=== PATIENT | female | born 1965 | race Caucasian/White ===

== ENCOUNTER → 2021-08-14 | Outpatient (CLI) | payer BC ==
[~2021-08-14] VITALS: Ht 160 cm; Wt 60.8 kg
== END ==
LOC: EROP 20:58
DX: U07.1 COVID-19 (principal); Z23 Encounter for immunization
CPT/HCPCS: 96365

== ENCOUNTER → 2022-05-12 | Outpatient (CLI) | payer BC ==
[2022-05-12 06:43] LABS: HEMOGLOBIN 13.5 gm/dl (12.3-15.3); RED BLOOD COUNT 4.38 M/UL (4.00-5.10); WHITE BLOOD COUNT 5.4 K/UL (4.5-11.0)
[2022-05-12 07:11] LABS: BUN/CREATININE RATIO 18 (0-10)
== END ==
LOC: LAB 05:57
PROVIDERS: Nurse Practitioner Family
DX: Z00.00 Encounter for general adult medical examination without abnormal findings (principal); K59.00 Constipation, unspecified; E78.00 Pure hypercholesterolemia, unspecified; R41.3 Other amnesia; R53.83 Other fatigue
CPT/HCPCS: 36415; 80053; 80061; 82607; 84439; 84443; 85025